=== PATIENT | female | born 1995 | race African-American/Black ===

== ENCOUNTER 2018-04-12 18:33 | Emergency (ER) | payer SELFPAY ==
[~2018-04-12] VITALS: Ht 165.1 cm; Wt 49.0 kg
[2018-04-12 19:11] VITALS: BP 122/77
[2018-04-12] MEDS ORDERED: HYDROXYZINE 25MG TABLET PO ONE (20:00)
== END 2018-04-12 20:31 | disposition home or self-care (01) ==
LOC: ER 18:50
DX: R21 Rash and other nonspecific skin eruption (principal); M32.9 Systemic lupus erythematosus, unspecified; F12.10 Cannabis abuse, uncomplicated; Z96.649 Presence of unspecified artificial hip joint
CPT/HCPCS: 99283; Z7610

== ENCOUNTER 2019-07-23 06:30 | Inpatient (IN) | payer MEDICAID, OTHER ==
[~2019-07-23] VITALS: Ht 165.1 cm; Wt 45.4 kg
[2019-07-23] MEDS ORDERED: MORPHINE SULFATE 4 MG/ML CPJ (NOT FOR IM USE) IV STA (07:01)
[2019-07-23] MEDS ORDERED: ONDANSETRON HCL 4MG/2ML INJ IV STA (07:01)
[2019-07-23] MEDS ORDERED: KETOROLAC 30MG/ML VIAL IV STA (07:01)
[2019-07-23 07:45] LABS: CLARITY URINE CLOUDY (CLEAR); COLOR URINE YELLOW (YELLOW); KETONES URINE NEGATIVE (NEGATIVE); LEUKOCYTE ESTERASE URINE 2+ (NEGATIVE); NITRITE URINE NEGATIVE (NEGATIVE); OCCULT BLOOD URINE TRACE (NEGATIVE); PROTEIN URINE TRACE (NEGATIVE); SPECIFIC GRAVITY URINE 1.014 (1.005-1.030); UROBILINOGEN URINE 0.2 E.U./dL (0.2-1.0)
[2019-07-23 07:46] LABS: CHLORIDE 106 mEq/L (98-107)
[2019-07-23 07:49] LABS: BASOPHILS % 0.4 % (0.0-2.0); EOSINOPHILS % 5.9 % (0.0-5.0); HEMATOCRIT. 22.6 % (36.0-48.0); LYMPHOCYTES % 15.6 % (20.0-50.0); MEAN CORPUSCULAR HEMOGLOBIN 17.7 pg (28.0-32.0); MEAN CORPUSCULAR VOLUME 58.9 fL (81.0-99.0); MEAN PLATELET VOLUME 8.6 fl (7.4-10.4); MONOCYTES % 10.5 % (2.0-8.0); NEUTROPHILS % 67.6 % (40.0-76.0); PLATELET 249 x1000/uL (130-400); RED BLOOD CELL COUNT 3.84 mill/uL (4.2-5.4); RED CELL DISTRIBUTION WIDTH 19.1 % (11.6-14.6)
[2019-07-23 08:00] LABS: HEMOGLOBIN. 6.8 g/dL (12.0-16.0)
[2019-07-23 08:46] LABS: PLATELET ESTIMATE NORMAL
[2019-07-23] MEDS ORDERED: CEFTRIAXONE 2 G PREMIX 50 ML IV ONE (10:30)
[2019-07-23 12:00] VITALS: BP 102/65
[2019-07-23] MEDS ORDERED: CLONIDINE 0.1MG TABLET PO PRN (13:30)
[2019-07-23] MEDS ORDERED: HYDROCODONE/ACETAMINOPHEN 5/325MG TABLET PO PRN (13:30)
[2019-07-23] MEDS ORDERED: MAGNESIUM/ALUMINUM HYDROXIDE/SIMETHICONE 30ML UDC PO PRN (13:30)
[2019-07-23] MEDS ORDERED: ACETAMINOPHEN 325MG TABLET PO PRN (13:30)
[2019-07-23] MEDS ORDERED: MORPHINE SULFATE 2 MG/ML CPJ (NOT FOR IM USE) IV PRN (13:30)
[2019-07-23] MEDS ORDERED: ONDANSETRON HCL 4MG/2ML INJ IV PRN (13:30)
[2019-07-23] MEDS: SODIUM CHLORIDE 0.9% 1,000 ML IV SCH (14:07)
[2019-07-23 14:18] VITALS: BP 102/65
[2019-07-23 14:44] LABS: TOTAL IRON BINDING CAPACITY 435 ug/dL (250-450)
[2019-07-23] MEDS ORDERED: LEVOFLOXACIN 500MG PREMIX 100 ML IV SCH (15:00)
[2019-07-23 16:00] VITALS: BP 113/71
[2019-07-23 20:00] VITALS: BP 102/68
[2019-07-24] VITALS: BP 100/60
[2019-07-24] MEDS: SODIUM CHLORIDE 0.9% 1,000 ML IV SCH (03:30)
[2019-07-24 07:18] LABS: BASOPHILS % 0.6 % (0.0-2.0); HEMATOCRIT. 24.6 % (36.0-48.0); HEMOGLOBIN. 7.5 g/dL (12.0-16.0); LYMPHOCYTES % 22.7 % (20.0-50.0); MEAN CORPUSCULAR HEMOGLOBIN 19.2 pg (28.0-32.0); MEAN CORPUSCULAR VOLUME 62.5 fL (81.0-99.0); MEAN PLATELET VOLUME 8.6 fl (7.4-10.4); MONOCYTES % 11.1 % (2.0-8.0); NEUTROPHILS % 57.6 % (40.0-76.0); PLATELET 249 x1000/uL (130-400); RED BLOOD CELL COUNT 3.93 mill/uL (4.2-5.4); RED CELL DISTRIBUTION WIDTH 21.4 % (11.6-14.6)
[2019-07-24 07:34] LABS: CHLORIDE 112 mEq/L (98-107)
[2019-07-24 08:00] VITALS: BP 101/58
[2019-07-24 12:05] VITALS: BP 101/55
== END 2019-07-24 12:42 | disposition home or self-care (01) | DRG 465 ==
LOC: ER 07:01 → 6EST 12:17 → EDBEDREQ 12:21 → EDBEDREQTM 12:21 → ENRESERV 12:34
PROVIDERS: ADMIT Hospitalist; ATTEND Hospitalist
PROC: 30233N1 Transfusion of Nonautologous Red Blood Cells into Peripheral Vein, Percutaneous Approach (ICD-10-PCS; principal; 2019-07-23)
DX: N13.2 Hydronephrosis with renal and ureteral calculous obstruction (principal); M32.9 Systemic lupus erythematosus, unspecified; R10.9 Unspecified abdominal pain; Z96.643 Presence of artificial hip joint, bilateral; Z87.442 Personal history of urinary calculi; F12.90 Cannabis use, unspecified, uncomplicated; D64.9 Anemia, unspecified
CPT/HCPCS: 36415; 74176; 81003; 83540; 83550; 86850; 86900; 86920; 99285; J0696; J1956; J2270; J2405; P9016